=== PATIENT | male | born 1985 | race African-American/Black ===

== ENCOUNTER 2018-04-27 06:25 | Emergency (ER) | payer OTHER ==
[~2018-04-27] VITALS: Ht 182.9 cm; Wt 83.0 kg
[2018-04-27] MEDS ORDERED: BACITRACIN ZINC OINT UDPKT TOP ONE (08:00)
[2018-04-27] MEDS ORDERED: TETANUS, DIPHTHERIA, PERTUSSIS VAC/PF 0.5ML (>7YR OLD) IM ONE (08:00)
[2018-04-27] MEDS ORDERED: IBUPROFEN 600MG TABLET PO ONE (10:00)
[2018-04-27 10:51] VITALS: BP 121/67
== END 2018-04-27 11:31 | disposition home or self-care (01) ==
LOC: ER 06:44
DX: S01.81XA Laceration without foreign body of other part of head, initial encounter (principal); S02.2XXA Fracture of nasal bones, initial encounter for closed fracture; M25.562 Pain in left knee; M25.561 Pain in right knee; Z23 Encounter for immunization; Y35.893A Legal intervention involving other specified means, suspect injured, initial encounter
CPT/HCPCS: 10120; 12011; 70486; 73562; 90471; 90715; 99284; Z7610